=== PATIENT | female | born 1950 | race Caucasian/White ===

== ENCOUNTER 2016-12-21 13:57 | Emergency (ER) | payer BC ==
[2016-12-21] MEDS ORDERED: Albuterol/Ipratropium NEB.SOL* Albuterol 2.5 MG/Ipratropium 0.5 MG 3 ML INH ONE (14:10)
[2016-12-21 14:24] VITALS: BP 128/87
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
--- NOTE | 2016-12-21 15:07 | RAD ---
INDICATION: 1.5 weeks shortness of breath, chest pain, cough, wheezing. History of asthma. History of cardiac disease with murmur. COMPARISON: January 15, 2016 CT. TECHNIQUE: Dual energy PA and routine lateral views of the chest were obtained. REPORT: Mild alveolar consolidation at the basilar segments of the LEFT lower lobe most conspicuous on the lateral view. The lungs and pleural spaces are otherwise clear. Negative for cardiomegaly. Unremarkable central pulmonary vasculature and mediastinal contours. IMPRESSION: Mild airspace consolidation at the basilar segments of the LEFT lower lobe most suspicious for pneumonia given the clinical context. Correlate with clinical assessment and consider radiographic follow-up after therapy to assess for resolution.
== END 2016-12-21 15:13 | disposition home or self-care (01) ==
LOC: UCEAST 13:57
DX: J18.0 Bronchopneumonia, unspecified organism (principal); Z88.0 Allergy status to penicillin; Z88.8 Allergy status to other drugs, medicaments and biological substances; Z91.030 Bee allergy status; Z91.040 Latex allergy status; Z79.82 Long term (current) use of aspirin
CPT/HCPCS: 71020; 99202; A9270-GY; G0463

== ENCOUNTER 2017-10-03 14:28 | Emergency (ER) | payer BC ==
[2017-10-03 14:50] VITALS: BP 144/72
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
--- NOTE | 2017-10-03 16:29 | RAD ---
INDICATION: Lower abdominal pain COMPARISON: CT of the abdomen and pelvis dated January 15, 2016 TECHNIQUE: Supine and upright views of the abdomen were obtained. FINDINGS: There is a large amount of stool seen throughout the length of the colon. Gas is noted in the bowel loops of the left upper quadrant. There is no pathologic dilatation visible radiographically. There is no appearance of wall thickening or free air in the peritoneum. No grossly abnormal or pathologic appearing calcifications are noted. Visualized bones are within normal limits for the patient's age. IMPRESSION: There is a moderate amount of stool overlying the proximal colon and rectum. Please correlate to clinical signs and symptoms of constipation.
--- NOTE | 2017-10-03 16:32 | RAD ---
INDICATION: Low back pain COMPARISON: similar radiographic series dated November 25, 2012 TECHNIQUE: 5 views of the lumbar spine were obtained. FINDINGS: The vertebra are in normal alignment. No fracture is seen. Degenerative changes include loss of intervertebral disc height involving the lower thoracic and lumbar spine. The degenerative changes are most severe at L4/L5 and L5/S1. At these lower levels there is near complete obliteration of the intervertebral disc space, sclerotic change of the articulating endplates and marginal osteophyte formation. This appears to have advanced since the 2013 radiograph. IMPRESSION: Degenerative changes as described above most severely affecting L4-S1 with worsening appearance since the 2013 lumbar spine radiograph.
--- NOTE | 2017-10-05 16:08 | PN ---
Progress Note - Progress Note Date of Service: 10/05/17 Note: - Urine cultures negative call patient and inform, can stop taking ABX, follow up with PCP. -Elis Rendon PAC
== END 2017-10-03 16:55 | disposition home or self-care (01) ==
LOC: UCEAST 14:28
DX: K59.00 Constipation, unspecified (principal); N39.0 Urinary tract infection, site not specified; M54.5 Low back pain; M47.817 Spondylosis without myelopathy or radiculopathy, lumbosacral region; Z88.3 Allergy status to other anti-infective agents; Z88.0 Allergy status to penicillin; Z88.8 Allergy status to other drugs, medicaments and biological substances
CPT/HCPCS: 72110; 74019; 81003; 87086; 99212; G0463

== ENCOUNTER 2019-06-14 11:02 | Emergency (ER) | payer MEDICARE, BC ==
[2019-06-14] MEDS ORDERED: Ipratropium 0.5MG/2.5ML NEB* 0.5 MG/2.5 ML NEB.SOLN INH ONE (11:07)
[2019-06-14] MEDS ORDERED: Albuterol 2.5 MG/3 ML NEB.SOL* (0.083%) INH ONE (11:07)
[2019-06-14] MEDS ORDERED: methylPREDNISolone 125 MG* 2 ML VIAL IM ONE (11:07)
[2019-06-14 11:09] VITALS: BP 141/99
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
--- OUTSIDE RECORDS SUMMARY | 2019-06-14 11:14 | XMS REPORT | Continuity of Care Document ---
:1950 External Reference #:[id number] Author Name Maricruz Wiggins M.D. Address [address] [facility] [place] [address] Care Team Providers Name Role Phone Calixtoelzbieta Josefina - Gastroenterology Care Team Information Television Inspector [phone] Maricruz Wiggins M.D. - Family Medicine Care Team Information Television Inspector Unavailable Problems Active Problems Provider Date Benign essential hypertension Maricruz Wiggins M.D. Onset: 06/25/2014 Chronic rhinitis Maricruz Wiggins M.D. Onset: 06/25/2014 Chronic constipation Maricruz Wiggins M.D. Onset: 03/04/2015 Asthma without status asthmaticus Maricruz Wiggins M.D. Onset: 03/04/2015 Degenerative joint disease involving Maricruz Wiggins M.D. Onset: 03/04/2015 multiple joints Essential hypertension Maricruz Wiggins M.D. Onset: 05/13/2015 Anemia Gerson Hannon M.D. Onset: 01/28/2016 Caldera's esophagus Maricruz Wiggins M.D. Onset: 04/03/2016 Uncomplicated moderate persistent asthma Maricruz Wiggins M.D. Onset: 09/16/2016 Gastroesophageal reflux disease Maricruz Wiggins M.D. Onset: 09/16/2016 Hyperlipidemia Maricruz Wiggins M.D. Onset: 01/25/2018 Obesity Maricruz Wiggins M.D. Onset: 01/11/2019 Female climacteric state Maricruz Wiggins M.D. Onset: 07/13/2018 Social History Type Date Description Comments Sex Unknown Tobacco Use Start: Unknown Nonsmoker ETOH Use Rare Tobacco Use Start: Unknown Patient has never smoked Smoking Status Reviewed: 10/28/18 Patient has never smoked Allergies, Adverse Reactions, Alerts Active Allergies Reaction Severity Comments Date Penicillins 12/09/2009 Iodine 12/09/2009 Latex 12/09/2009 Seafood sometimes throat closes, 06/25/2014 burning in throat, only some seafoo Gluten sensitivity 06/25/2014 Levofloxacin 01/28/2016 Avelox 01/28/2016 Chocolate severe headaches 09/21/2017 Wheat Gluten cramping, gerd 09/21/2017 Dairy cramping, congestion 09/21/2017 Medications Active Medications SIG Qnty Indications Ordering Date Provider Hydrochlorothiazide take 1 tablet by 90tabs I10 [facility], 07/08/2017 12.5mg mouth once daily M.D. Tablets Proair Respiclick 2 puff every 4 1units [facility], 12/23/2016 108(90Base) hours as needed M.D. mcg/Act Aerosol Glucosamine Chondroitin 1 by mouth every Unknown 1500 Complex day 1500Com Capsules Iron 1 by mouth Unknown 325(65Fe) mg Tablets Aspirin Adult Low Dose 1 by mouth every Unknown 81mg day Tablets DR Khan 2 puff twice a Unknown 200-5mcg/Act Aerosol day Levocetirizine 1 by mouth every Unknown Dihydrochloride day 5mg Tablets Montelukast Sodium 1 by mouth every Unknown 10mg Tablets day [place] 3 drops to Unknown 0.025% Solution affected eye three times a day as needed Omeprazole 1 po bid 90caps Unknown 40mg Capsules DR Mar 1 po bid Unknown 24mcg Capsules Epipen 2-Beni use as directed 1units Unknown 0.3mg/0.3ML Device Vitamin C 1 po qd Unknown 1000mg Tablets Vitamin D 1 po bid for Unknown 1000Unit Tablets vitamin d deficiency Tylenol 2 tabs po q4hrs 60tabs Unknown 325mg Tablets prn for pain or elevated temp History Medications Azithromycin z beni as 6tabs J06.9 Mag Pereira 01/13/2019 - 250mg directed, 2 tabs Mcdonald, [employer] 02/16/2019 Tablets day one, one tab day 2-5 Doxycycline 1 tab twice a day 20caps J06.9 [facility], 01/11/2019 - Monohydrate x 10 days M.D. 01/13/2019 100mg Capsules Benzonatate 1 tab q6 hours as 30caps J06.9 Maricruz Wiggins, 01/11/2019 - 100mg needed cough M.D. 02/16/2019 Capsules Immunizations CPT Code Status Date Vaccine Lot # [id number] Given 04/02/2019 Influenza Vac, Quadriv[place], [place] [id number] Given 03/21/2018 Influenza Vac, [place]riv[place], [place] [address] Given 01/11/2018 Tdap Tetanus, W Pertussis [id number] Given 04/20/2017 Pneumococcal Immunization [id number] 24632 Given 03/04/2017 Influenza Vac, Quadriv[place], [place] [address] Given 03/04/2017 High-Dose, Influenza Virus Vacccine-fluzone 65 and older 02149 Given 03/13/2016 Zostivax [id number] Given 03/13/2016 Pneumococcal Conjugate Vacc-13 [id number] 97938 Given 04/26/2015 Influenza Vac, [place]riv[place] [id number] Given 05/03/2014 DO Not Use Split Influenza Virus Vaccine [id number] Given 05/01/2013 DO Not Use Split Influenza Virus Vaccine [id number] Vital Signs Date Vital Result Comment 05/10/2019 3:36pm BP Systolic 120 mmHg BP Diastolic 80 mmHg Heart Rate 76 /min Body Temperature 98.6 F Respiratory Rate 18 /min Weight 169.00 lb 02/16/2019 11:26am BP Systolic 130 mmHg BP Diastolic 88 mmHg Heart Rate 68 /min Body Temperature 97.7 F Weight 175.00 lb Results Test Date Facility Test Result H/L Range Note Laboratory test 02/16/2019 [facility] neg Negative finding (607)- - Procedures Date Code Description Status 01/18/2019 [id number] Mammogram Completed 11/16/2016 [id number] Mammogram Completed 07/19/2015 [id number] Colonoscopy Completed 06/13/2014 [id number] Mammogram Completed 01/12/2011 [id number] Mammogram Completed Medical Devices Description No Information Available Encounters Type Date Location Provider Dx Diagnosis Office Visit 02/16/2019 [facility] Office Sheri J02.9 Acute pharyngitis , 11:30a Ora, [employer] unspecified R13.10 Dysphagia, unspecified J32.8 Other chronic sinusitis J30.9 Allergic rhinitis, unspecified Office Visit 01/11/2019 10:[facility] Maricruz Wiggins, J06.9 Acute upper M.DMansi respiratory infection, unspecified I10 Essential (primary) hypertension J45.40 Moderate persistent asthma, uncomplicated Z12.31 Encntr screen mammogram for malignant neoplasm of breast E66.9 Obesity, unspecified Assessments Date Code Description Provider 05/10/2019 J06.9 Acute upper respiratory infection, Maricruz Wiggins M.D. unspecified 05/10/2019 I10 Essential (primary) hypertension Maricruz Wiggins M.D. 05/10/2019 J45.40 Moderate persistent asthma, uncomplicated Maricruz Wiggins M.D. 02/16/2019 J02.9 Acute pharyngitis, unspecified Sheri Ora, [facility] 02/16/2019 R13.10 Dysphagia, unspecified Sheri Ora, [facility] 02/16/2019 J32.8 Other chronic sinusitis Sheri Ora, [facility] 02/16/2019 J30.9 Allergic rhinitis, unspecified Sheri Ora, [facility] 01/11/2019 J06.9 Acute upper respiratory infection, Maricruz Wiggins M.D. unspecified 01/11/2019 I10 Essential (primary) hypertension Maricruz Wiggins M.D. 01/11/2019 J45.40 Moderate persistent asthma, uncomplicated Maricruz Wiggins M.D. 01/11/2019 Z12.31 Encounter for screening mammogram for Maricruz Wiggins M.D. malignant neoplasm of 01/11/2019 E66.9 Obesity, unspecified Maricruz Wiggins M.D. Plan of Treatment 05/10/2019 - Maricruz Wiggins M.D.J06.9 Acute upper respiratory infection, unspecifiedComments:patient agrees to call if symptoms worsen Supportive care discussed. Use tylenol or ibuprofen per directions as needed for pain and headache. Use saline rinse/chio pot twice a day for congestion. Canuse mucinex 1 tab twice a day or 1 tab of Claritin or zyrtec at bedtime for congestion. Call if symptoms aren't improved or if they are worsening in the next few days.I10 Essential (primary) hypertensionComments:The patient will continue to monitor blood pressure and let me know the blood pressure results if there are readings persistently above 140/90. Goal blood pressure is less than 130/80. Recommend low salt/cardiac diet such as the Mediterranean diet and routine exercise at least 30 minutes a day.J45.40 Moderate persistent asthma, uncomplicatedComments:stable on regimen follows with asthma specialistAllComments:Medication Management Patient Understands medications she' s taking? Yes No Are there Barriers to Adherence? Yes No Has the patient been asked about herbal supplements and therapies, and OTC meds? Yes No Functional Status Description No Information Available Mental Status Description No Information Available Referrals Description No Information Available
[2019-06-14] MEDS ORDERED: Ondansetron ODT TAB* 4 MG PO ONE (11:54)
== END 2019-06-14 12:58 | disposition home or self-care (01) ==
LOC: UCEAST 11:02
DX: J45.901 Unspecified asthma with (acute) exacerbation (principal); R53.83 Other fatigue; R11.0 Nausea; Z88.0 Allergy status to penicillin; Z88.1 Allergy status to other antibiotic agents; Z91.030 Bee allergy status; Z91.018 Allergy to other foods; Z91.011 Allergy to milk products; Z91.040 Latex allergy status; Z91.013 Allergy to seafood; Z91.09 Other allergy status, other than to drugs and biological substances
CPT/HCPCS: 71046; 96372; 99213; A9270-GY; G0463; J2930